=== PATIENT | male | born 1930 | race Caucasian/White ===

== ENCOUNTER 2017-01-02 12:53 | Emergency (ER) | payer OTHER ==
[~2017-01-02] VITALS: Ht 162.6 cm; Wt 63.5 kg
[~2017-01-02 12:53] MED LIST: ALLO300T2 PO; AMLO-218 PO; ATOR20TA38 PO; CARV6.25 PO; GABA100C14 PO; LOSA50TA6 PO; NAPR-260 PO
[2017-01-02 13:02] VITALS: Ht 162.6 cm; Wt 63.5 kg
--- NOTE | 2017-01-02 13:36 | ERD ---
ER Documentation Chief Complaint Date/Time DATE: 01/02/17 TIME: 13:29 Chief Complaint swelling, discoloration, and wound to the left foot x 3 days HPI 86-year-old male with history of hypertension, hyperlipidemia and coronary artery disease status post remote CABG and chronic venous stasis of the left lower extremity presents the ED complaining of a three-day history of pain sharp , moderate, nonradiating pain and foul-smelling drainage over the medial aspect of his right ankle and lower leg. No history of trauma. Denies calf pain or swelling. No chest pain or palpitations. Denies shortness of breath or cough. No relieving or exacerbating factors. No claudication. No fevers or chills. Recent evaluation by vascular surgery. Recommendation was for compression stockings hose. ROS All systems reviewed and are negative except as per history of present illness. Medications Home Meds Active Scripts Tramadol HCl (Tramadol HCl) 50 Mg Tablet, 50 MG PO Q6 Y for PAIN, #12 TAB Prov:DARYA FORDE MD 01/02/17 Levofloxacin* (Levaquin*) 500 Mg Tablet, 500 MG PO DAILY for 7 Days, TAB Prov:DARYA FORDE MD 01/02/17 Sulfamethoxazole/Trimethoprim* (Bactrim Ds* Tablet) 1 Each Tablet, 1 TAB PO BID , #14 TAB Prov:DARYA FORDE MD 01/02/17 Reported Medications Aspirin* (Aspirin* EC) 81 Mg Tablet.dr, 81 MG PO DAILY, TAB 01/02/17 Amlodipine Besylate* (Norvasc*) 10 Mg Tablet, 10 MG PO DAILY, TAB 08/24/14 Atorvastatin Calcium* (Atorvastatin Calcium*) 20 Mg Tablet, 20 MG PO HS, TAB 08/24/14 Losartan Potassium* (Losartan Potassium*) 50 Mg Tablet, 50 MG PO DAILY, TAB 12/01/13 Allopurinol* (Allopurinol*) 300 Mg Tablet, 300 MG PO DAILY, TAB 12/01/13 Discontinued Reported Medications Carvedilol* (Coreg*) 6.25 Mg Tablet, 6.25 MG PO BID, TAB 08/24/14 Naproxen* (Naprosyn*) 500 Mg Tablet, 500 MG PO BID, TAB 08/24/14 Gabapentin* (Gabapentin*) 100 Mg Capsule, 100 MG PO BID, CAP 12/01/13 Allergies Allergies: Coded Allergies: No Known Allergy (Unverified , 01/02/17) PMhx/Soc Reviewed in chart. As per HPI. History of Surgery: Yes (CABG, RIGHT INGUINAL HERNIA) Anesthesia Reaction: No Hx Neurological Disorder: Yes (GENERALIZED WEAKNESS) Hx Respiratory Disorders: No Hx Cardiac Disorders: Yes (HTN) Hx Miscellaneous Medical Probl: Yes (HIGH CHOLESTEROL) Hx Alcohol Use: No Hx Substance Use: No Hx Tobacco Use: No (QUIT 7 YRS AGO) FmHx Diabetes but no heart disease or cancer. Physical Exam Vitals Vital Signs Date Time Temp Pulse Resp B/P Pulse Ox O2 Delivery O2 Flow Rate FiO2 01/02/17 16:50 98.0 79 18 139/71 01/02/17 13:02 99.5 103 18 162/74 97 Physical Exam Const: Alert, mild distress due to pain Head: Atraumatic Eyes: Normal Conjunctiva ENT: Normal External Ears, Nose and Mouth. Neck: Full range of motion..~ No meningismus. Resp: Clear to auscultation bilaterally Cardio: Regular rate and rhythm, no murmurs Abd: Soft, non tender, non distended. Normal bowel sounds Skin: No petechiae or rashes Back: No midline or flank tenderness Ext: No cyanosis, or edema Neur: Awake and alert Psych: Normal Mood and Affect Result Diagram: 01/02/17 1330 01/02/17 1330 Results 24 hrs Laboratory Tests Test 01/02/17 13:30 White Blood Count 7.910^3/ul Red Blood Count 4.3610^6/ul Hemoglobin 12.3g/dl Hematocrit 37.2% Mean Corpuscular Volume 85.3fl Mean Corpuscular Hemoglobin 28.2pg Mean Corpuscular Hemoglobin Concent 33.1g/dl Red Cell Distribution Width 15.1% Platelet Count 41595^3/UL Mean Platelet Volume 9.5fl Neutrophils % 76.6% Lymphocytes % 11.6% Monocytes % 6.3% Eosinophils % 4.4% Basophils % 0.6% Nucleated Red Blood Cells % 0.0/100WBC Neutrophils # 6.110^3/ul Lymphocytes # 0.910^3/ul Monocytes # 0.510^3/ul Eosinophils # 0.410^3/ul Basophils # 0.110^3/ul Nucleated Red Blood Cells # 0.010^3/ul Sodium Level 147mmol/L Potassium Level 4.3mmol/L Chloride Level 112mmol/L Carbon Dioxide Level 23mmol/L Anion Gap 16 Blood Urea Nitrogen 31mg/dl Creatinine 2.31mg/dl Glucose Level 114mg/dl Calcium Level 9.2mg/dl Current Medications Medications (Trade) Dose Ordered Sig/Jaky Route PRN Reason Start Time Stop Time Status Last Admin Dose Admin Morphine Sulfate 2 mg 2 mg ONCE ONCE IV 01/02/17 14:00 01/02/17 14:01 DC 01/02/17 13:46 Sodium Chloride (NS) 500 ml @ 500 mls/hr Q1H STAT IV 01/02/17 14:46 01/02/17 15:45 DC 01/02/17 14:53 PROCEDURE: XR left Ankle. CLINICAL INDICATION: Osteomyelitis TECHNIQUE: Three views of the left ankle were performed. COMPARISON: None. FINDINGS: There is no acute fracture or dislocation. The ankle mortise is intact. There is no significant joint effusion. There is a small plantar calcaneal heel spur. There are also enthesophytes within the posterior calcaneus at the Achilles tendon insertion. There is suggestion of thickening of the Achilles tendon, limited in evaluation. There is mild irregularity of the subcutaneous soft tissues over the medial malleolus. RPTAT: EE IMPRESSION: 1. No acute fracture or bony destructive changes. No radiographic evidence of osteomyelitis although MRI is more sensitive for evaluation of osteomyelitis. 2. Soft tissue swelling over the medial malleolus with mild irregularity of the soft tissues in which a small ulcer may be present - clinically correlate. .Lisa Church MD, MD Date Time Electronically viewed and signed by .Lisa Church MD, on 01/02/2017 15: 32 .T/ Procedures/MDM Reviewed in chart. As per HPI. DOCUMENTS REVIEWED: ED nurse, prior records. MEDICAL DECISION MAKIN-year-old male with history of hypertension, hyperlipidemia and coronary artery disease status post remote CABG and chronic venous stasis of the left lower extremity presents the ED complaining of a three -day history of pain sharp, moderate, nonradiating pain and foul-smelling drainage over the medial aspect of his right ankle and lower leg. Chronic venous stasis with ulceration and cellulitis. Osteomyelitis unlikely. No ascending lymphangitis or necrotizing fasciitis. No SIRS or sepsis. Stable for discharge with oral antibiotics and close outpatient followup. Counseled patient and family regarding diagnostic workup, diagnosis and need for followup. Understands to return to ED if symptoms recur, worsen or any other concerns. Departure Diagnosis: Primary Impression: Left leg pain Additional Impressions: Left leg cellulitis Venous stasis dermatitis of left lower extremity Acute renal insufficiency Condition: Stable DARYA FORDE MD Jan 02, 2017 13:36
[2017-01-02 13:46] LABS: BASOPHIL # 0.1 10^3/ul (0.0-0.1); BASOPHILS % 0.6 % (0.0-2.0); EOSINOPHILS # 0.4 10^3/ul (0.0-0.5); EOSINOPHILS % 4.4 % (0.0-7.0); HEMATOCRIT 37.2 % (42.0-52.0); HEMOGLOBIN 12.3 g/dl (14.0-18.0); LYMPHOCYTES # 0.9 10^3/ul (0.8-2.9); LYMPHOCYTES % 11.6 % (15.0-51.0); MEAN CORPUSCULAR HEMOGLOBIN 28.2 pg (29.0-33.0); MEAN CORPUSCULAR HGB CONC 33.1 g/dl (32.0-37.0); MEAN CORPUSCULAR VOLUME 85.3 fl (82.0-101.0); MEAN PLATELET VOLUME 9.5 fl (7.4-10.4); MONOCYTE # 0.5 10^3/ul (0.3-0.9); MONOCYTES % 6.3 % (0.0-11.0); NEUTROPHIL # 6.1 10^3/ul (1.6-7.5); NEUTROPHILS % 76.6 % (39.0-77.0); PLATELET COUNT 246 10^3/UL (140-415); RED BLOOD COUNT 4.36 10^6/ul (4.70-6.10); RED CELL DISTRIBUTION WIDTH 15.1 % (11.5-14.5); WHITE BLOOD COUNT 7.9 10^3/ul (4.8-10.8)
[2017-01-02] MEDS ORDERED: ASPI-664 PO (13:53)
[2017-01-02] MEDS ORDERED: morphine 2 MG INJ IV ONE (14:00)
[2017-01-02 14:01] LABS: CALCIUM 9.2 mg/dl (8.4-10.2); CREATININE 2.31 mg/dl (0.61-1.24); POTASSIUM 4.3 mmol/L (3.5-5.1)
[2017-01-02] MEDS ORDERED: SOD CHLORIDE 0.9% 500 ML IV STA (14:46)
--- NOTE | 2017-01-02 15:26 | RADRPT ---
PROCEDURE: XR left Ankle. CLINICAL INDICATION: Osteomyelitis TECHNIQUE: Three views of the left ankle were performed. COMPARISON: None. FINDINGS: There is no acute fracture or dislocation. The ankle mortise is intact. There is no significant alberto int effusion. There is a small plantar calcaneal heel spur. There are also enthesophytes within the posterior calcaneus at the Achilles tendon insertion. There is suggestion of thickening of the Achi lles tendon, limited in evaluation. There is mild irregularity of the subcutaneous soft tissues over the medial malleolus. RPTAT: EE IMPRESSION: 1. No acute fracture or bony destructive changes. No radiographic evidence of osteomyelitis although MRI is more sensitive for evaluation of osteomyelitis. 2. Soft tissue swelling over the medial malleolus with mild irregularity of the soft tissues in whic h a small ulcer may be present - clinically correlate. .Lisa Church MD, Date Time Electronically viewed and signed by .Lisa Church MD, on 01/02/2017 15:32 .T/
[2017-01-02] MEDS ORDERED: LEVO500T72 PO (16:15)
[2017-01-02] MEDS ORDERED: TRAM50TA2 PO (16:15)
[2017-01-02] MEDS ORDERED: SULF1TAB31 PO (16:15)
[2017-01-02 16:50] VITALS: BP 139/71; PULSE 79; RESP 18; TEMP 98
== END 2017-01-02 16:51 | disposition home or self-care (01) ==
LOC: E/R 12:53
DX: I87.2 Venous insufficiency (chronic) (peripheral) (principal); L03.116 Cellulitis of left lower limb; N28.9 Disorder of kidney and ureter, unspecified; I10 Essential (primary) hypertension; I25.10 Atherosclerotic heart disease of native coronary artery without angina pectoris; Z79.82 Long term (current) use of aspirin; Z87.891 Personal history of nicotine dependence; Z98.61 Coronary angioplasty status
CPT/HCPCS: 73610; 80048; 85025; 96374; J2270; J7040; Z7502